=== PATIENT | female | born 1975 | race Hispanic/Latino ===

== ENCOUNTER 2017-06-21 12:54 | Outpatient (CLI) | payer OTHER ==
--- NOTE | 2017-06-21 15:39 | ULT ---
DIAGNOSTIC LEFT BREAST ULTRASOUND: Date: 06/21/17 CLINICAL HISTORY: Asymmetric density of the left breast. FINDINGS: Localized real-time sonographic imaging of the central region of the left breast labeled as 12 o'hayely ck 1.0 cm from the nipple is performed, which reveals a rounded hypoechoic focus measuring 3.0 mm. T here is an adjacent small, subcentimeter focus of decreased echogenicity. Findings are too small to definitively characterize. It is difficult to discern as to whether these findings definitively shayne elate to the area of mammographic concern. IMPRESSION: BIRADS 3: Probably Benign Finding - Short-Interval Follow-Up Suggested Recommend follow-up diagnostic left mammogram and left breast ultrasound in 6 months to document con firmed stability. The facility will notify the patient of the need for additional imaging services. POS: [facility]
--- NOTE | 2017-06-21 16:01 | MMO ---
DIAGNOSTIC LEFT MAMMOGRAM: Date: 06/21/17 CLINICAL HISTORY: Asymmetric density. Patient presents for imaging follow-up. FINDINGS: The previously described asymmetric density of the posterior depth left breast, centrally, is again seen with compression CC imaging. Density of the slightly upper breast is present within compression left MLO view, although this does not definitively correlate to the asymmetric density on CC view. Finding is not well discerned by rolled CC views. Targeted ultrasound of the slightly upper and central region left breast, middle to posterior depth, reveals subcentimeter foci of decreased echogenicity which are on the magnitude of a few millimeter s in size, too small to definitively characterize. The mammographic finding measuring approximately 5.0 mm. IMPRESSION: BIRADS 3: Probably Benign Finding - Short-Interval Follow-Up Suggested Left mammogram and left breast ultrasound recommended in 6 months to confirm stability. Findings and recommendation discussed with the patient, with a use of an representative government relations, at the time of the exam. CODE CR. POS: [facility]ON
== END 2017-06-21 12:55 | disposition home or self-care (01) ==
LOC: MAMMO 12:54
PROVIDERS: ATTEND Family Medicine
DX: R92.2 Inconclusive mammogram (principal)
CPT/HCPCS: G0206-LT

== ENCOUNTER 2018-03-29 13:06 | Outpatient (CLI) | payer OTHER | END 2018-03-29 13:07 | disposition home or self-care (01) | LOC: BICMAMMO 13:06 | PROVIDERS: ATTEND Family Medicine | DX: Z01.419 Encounter for gynecological examination (general) (routine) without abnormal findings (principal); R92.8 Other abnormal and inconclusive findings on diagnostic imaging of breast | CPT/HCPCS: G0279 ==

== ENCOUNTER 2019-04-11 09:37 | Outpatient (CLI) | payer OTHER ==
--- NOTE | 2019-04-11 10:32 | MMO ---
Bilateral MAMMO Bilat Diag [facility]. CLINICAL HISTORY: Patient is 43 years old and is seen for screening. The patient has no family history of breast cancer. The patient has no personal history of cancer. VIEWS: The views performed were: bilateral craniocaudal with tomosynthesis; bilateral mediolateral oblique with tomosynthesis; and bilateral mediolateral. FILMS COMPARED: The present examination has been compared to prior imaging studies performed at [facility] on 03/29/2018, and at [facility] on 05/31/2017 and 06/21/2017. MAMMOGRAM FINDINGS: There are scattered fibroglandular densities. There are no suspicious masses, suspicious calcifications, or new areas of architectural distortion. IMPRESSION: THERE IS NO MAMMOGRAPHIC EVIDENCE OF MALIGNANCY. A ROUTINE FOLLOW-UP MAMMOGRAM IN 1 YEAR IS RECOMMENDED. THE RESULTS OF THIS EXAM WERE SENT TO THE PATIENT. ACR BI-RADS Category 1 - Negative MAMMOGRAPHY NOTE: 1. A negative mammogram report should not delay a biopsy if a dominant of clinically suspicious mass is present. 2. Approximately 10% to 15% of breast cancers are not detected by mammography. 3. Adenosis and dense breasts may obscure an underlying neoplasm.
== END 2019-04-11 09:38 | disposition home or self-care (01) ==
LOC: BICMAMMO 09:37
PROVIDERS: ATTEND Family Medicine
DX: R92.8 Other abnormal and inconclusive findings on diagnostic imaging of breast (principal)
CPT/HCPCS: 77066; G0279

== ENCOUNTER 2020-04-21 13:58 | Outpatient (CLI) | payer OTHER ==
--- NOTE | 2020-04-21 16:18 | MMO ---
Bilateral MAMMO Bilat Screen [facility]. CLINICAL HISTORY: Patient is 44 years old and is seen for screening. The patient has no family history of breast cancer. The patient has no personal history of cancer. VIEWS: The views performed were: bilateral craniocaudal with tomosynthesis and bilateral mediolateral oblique with tomosynthesis. FILMS COMPARED: The present examination has been compared to prior imaging studies performed at [facility] on 03/29/2018 and 04/11/2019, and at [facility] on 05/31/2017 and 06/21/2017. This study has been interpreted with the assistance of computer-aided detection. MAMMOGRAM FINDINGS: There are scattered fibroglandular densities. There are no suspicious masses, suspicious calcifications, or new areas of architectural distortion. IMPRESSION: THERE IS NO MAMMOGRAPHIC EVIDENCE OF MALIGNANCY. A ROUTINE FOLLOW-UP MAMMOGRAM IN 1 YEAR IS RECOMMENDED. THE RESULTS OF THIS EXAM WERE SENT TO THE PATIENT. ACR BI-RADS Category 1 - Negative MAMMOGRAPHY NOTE: 1. A negative mammogram report should not delay a biopsy if a dominant of clinically suspicious mass is present. 2. Approximately 10% to 15% of breast cancers are not detected by mammography. 3. Adenosis and dense breasts may obscure an underlying neoplasm. Reported by: YASMEEN WILSON MD Electonically Signed: [id number]
== END 2020-04-21 13:59 | disposition home or self-care (01) ==
LOC: BICMAMMO 13:58
PROVIDERS: ATTEND Family Medicine
DX: Z12.31 Encounter for screening mammogram for malignant neoplasm of breast (principal)
CPT/HCPCS: 77063; 77067

== ENCOUNTER 2021-04-28 09:32 | Outpatient (CLI) | payer OTHER | END 2021-04-28 09:33 | disposition home or self-care (01) | LOC: BICMAMMO 09:32 | PROVIDERS: ATTEND Family Medicine | DX: Z12.31 Encounter for screening mammogram for malignant neoplasm of breast (principal) | CPT/HCPCS: 77063; 77067 ==

== ENCOUNTER 2022-05-19 11:23 | Outpatient (CLI) | payer BC | END 2022-05-19 11:24 | disposition home or self-care (01) | LOC: BICMAMMO 11:23 | PROVIDERS: ATTEND Family Medicine | DX: Z12.31 Encounter for screening mammogram for malignant neoplasm of breast (principal) | CPT/HCPCS: 77063; 77067 ==